=== PATIENT | female | born 1995 | race African-American/Black ===

== ENCOUNTER 2017-12-18 00:41 | Emergency (ER) | payer OTHER, SELFPAY ==
[~2017-12-18] VITALS: Ht 170.2 cm; Wt 117.0 kg
[2017-12-18] MEDS ORDERED: BIRTH CONTROL (00:47)
[2017-12-18 02:09] LABS: URINE BILIRUBIN NEGATIVE (Negative); URINE BLOOD NEGATIVE (Negative); URINE CLARITY CLEAR; URINE COLOR YELLOW; URINE GLUCOSE-RANDOM NEGATIVE (Negative); URINE KETONES NEGATIVE (Negative); URINE LEUKOCYTES-REFLEX NEGATIVE (Negative); URINE NITRITE-REFLEX NEGATIVE (Negative); URINE PROTEIN 1+ (Negative); URINE SPECIFIC GRAVITY 1.025 (1.005-1.030); URINE UROBILINOGEN 0.2 E.U./dl (0.2-1.0)
[2017-12-18 02:18] LABS: AMP/METHAMP Negative (Negative); BARBITURATES Negative (Negative); BENZODIAZEPINES Negative (Negative); COCAINE Negative (Negative); METHADONE Negative (Negative); OPIATES Negative (Negative); PCP Negative (Negative); THC POSITIVE (Negative)
[2017-12-18 02:57] VITALS: BP 139/87
== END 2017-12-18 02:58 | disposition home or self-care (01) ==
LOC: M.ERS 00:41
PROVIDERS: Personal Emergency Response Attendant
DX: F12.920 Cannabis use, unspecified with intoxication, uncomplicated (principal); F17.210 Nicotine dependence, cigarettes, uncomplicated